=== PATIENT | female | born 1975 | race Caucasian/White ===

== ENCOUNTER 2020-07-25 10:45 | Day surgery (SDC) | payer OTHER ==
[2020-07-25] MEDS ORDERED: ALBU2.5V5 (11:43)
[2020-07-25] MEDS ORDERED: BENHYD1012 (11:47)
[2020-07-25] MEDS ORDERED: CIME400 PO (11:48)
[2020-07-25] MEDS ORDERED: EUTHYROX175 MC1 PO (11:48)
[2020-07-25] MEDS ORDERED: MECL25 (11:49)
[2020-07-25] MEDS ORDERED: HYDCHL25 PO (11:49)
[2020-07-25] MEDS ORDERED: METF500 PO (11:50)
--- NOTE | 2020-07-25 14:05 | NUR ---
07/25/20 1405 Vincent Dalal IUD PLACED PER DR. EATON LOT # [id number] EXP. 11/2022
--- NOTE | 2020-07-25 15:23 | NUR ---
PT HAS VOIDED
--- NOTE | 2020-07-25 15:42 | NUR ---
Discharge instructions reviewed with patient. Patient verbalizes understanding. Copy given to patient to take home. Patient States Post-Procedure ride home has been arranged. Discharged via wheelchair to private car for ride home.
--- NOTE | 2020-07-25 15:58 | NUR ---
PT IV OUT PRIOR TO DISCHARGE. DC WITHIN NORMAL LIMITS
== END 2020-07-25 15:48 | disposition home or self-care (01) ==
LOC: ORSCMMR 10:45 → ORD 12:30 → ORSCMMR 12:30
PROVIDERS: Obstetrics & Gynecology
PROC: 0UB98ZX Excision of Uterus, Via Natural or Artificial Opening Endoscopic, Diagnostic (ICD-10-PCS; principal; 2020-07-25 12:30)
PROC: 0UH97HZ Insertion of Contraceptive Device into Uterus, Via Natural or Artificial Opening (ICD-10-PCS; principal; 2020-07-25 12:30)
PROC: 0UDB8ZX Extraction of Endometrium, Via Natural or Artificial Opening Endoscopic, Diagnostic (ICD-10-PCS; principal; 2020-07-25 12:30)
PROC: 0UBC7ZX Excision of Cervix, Via Natural or Artificial Opening, Diagnostic (ICD-10-PCS; principal; 2020-07-25 12:30)
DX: R87.810 Cervical high risk human papillomavirus (HPV) DNA test positive (principal); Z30.430 Encounter for insertion of intrauterine contraceptive device; N93.9 Abnormal uterine and vaginal bleeding, unspecified; N84.0 Polyp of corpus uteri; I10 Essential (primary) hypertension; E78.5 Hyperlipidemia, unspecified; E11.9 Type 2 diabetes mellitus without complications; E03.9 Hypothyroidism, unspecified; Z87.891 Personal history of nicotine dependence; E66.01 Morbid (severe) obesity due to excess calories; Z68.41 Body mass index [BMI] 40.0-44.9, adult; Z79.84 Long term (current) use of oral hypoglycemic drugs
CPT/HCPCS: 82947; 88305; A9270; J0461; J1100; J1885; J2250; J2405; J2704; J2765; J3010; J7120; J7298

== ENCOUNTER → 2021-02-08 | Outpatient (CLI) | payer OTHER ==
[~2021-02-08] MED LIST: ALBU2.5V5; BENHYD1012; CIME400 PO; EUTHYROX175 MC1 PO; HYDCHL25 PO; MECL25; METF500 PO
[2021-02-09 15:11] LABS: HPV 16 Negative (Negative); HPV 18 Negative (Negative); HPV OTHER HR TYPES Negative (Negative)
== END ==
LOC: LAB SHORT 10:26 → LAB 10:26
PROVIDERS: Obstetrics & Gynecology
DX: R87.619 Unspecified abnormal cytological findings in specimens from cervix uteri (principal)
CPT/HCPCS: 87624; 88142

== ENCOUNTER → 2023-03-22 | Outpatient (CLI) | payer OTHER | LOC: LAB SHORT 13:14 → LAB 13:14 | DX: R35.0 Frequency of micturition (principal) | CPT/HCPCS: 87086 ==

== ENCOUNTER → 2024-12-15 | Outpatient (CLI) | payer OTHER ==
[2024-12-16 14:36] LABS: Stool Occult Bld Immuno 1 Negative (NEGATIVE)
== END | disposition home or self-care (01) ==
LOC: LAB 10:00 → LAB SHORT 10:00
PROVIDERS: Family Medicine
DX: Z12.11 Encounter for screening for malignant neoplasm of colon (principal)
CPT/HCPCS: G0328